=== PATIENT | male | born 1965 | race Caucasian/White ===

== ENCOUNTER 2016-10-19 15:54 | Emergency (ER) | payer OTHER ==
--- NOTE | 2016-10-19 21:13 | RAD ---
LEFT ELBOW FOUR VIEWS 10/19/16 A joint effusion is present. Bony spurring is seen from the coronoid process of the ulna. On two of the views, one sees a linear piece of bone along side the lateral humeral epicondyle. This is either an avulsion injury or ossification in a previously damaged tendon. I cannot tell if this is a recen t or an old one. The latter seems a little more likely. IMPRESSION: 1. Joint effusion. 2. 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 3. Bony density along side the lateral humeral epicondyle. Avulsion versus ligamentous calcific ation from prior injury. Age indeterminate. Code T POS: HOME
== END 2016-10-19 17:10 | disposition home or self-care (01) ==
LOC: BURERS 15:54
DX: S50.02XA Contusion of left elbow, initial encounter (principal); I10 Essential (primary) hypertension; E11.9 Type 2 diabetes mellitus without complications; E78.5 Hyperlipidemia, unspecified; F41.9 Anxiety disorder, unspecified; W01.0XXA Fall on same level from slipping, tripping and stumbling without subsequent striking against object, initial encounter

== ENCOUNTER 2018-04-28 12:40 | Emergency (ER) | payer OTHER ==
[2018-04-28] MEDS ORDERED: Cephalexin 500 MG CAP ONE (13:55)
[2018-04-28] MEDS ORDERED: HYDROcodone/Acetaminophen 5/325 mg Tablet ONE (13:55)
--- NOTE | 2018-04-28 20:25 | RAD ---
RIGHT FOOT THREE VIEWS: 04/28/18 No opaque foreign body was appreciated, including on the plantar aspect of the foot at an area of int erest marked. There has been an old ORIF of a fracture of the distal fibula. There is a flexion defor mity of the great toe at the IP joint with a somewhat abnormal articulation of the two bones. No frac tures are seen. A bony density on the dorsum of the talus anteriorly appears to be due to an old inju ry. IMPRESSION: No opaque foreign body seen. POS: HOME
== END 2018-04-28 14:08 | disposition home or self-care (01) ==
LOC: BURERS 12:40
DX: S91.311A Laceration without foreign body, right foot, initial encounter (principal); E78.5 Hyperlipidemia, unspecified; I12.0 Hypertensive chronic kidney disease with stage 5 chronic kidney disease or end stage renal disease; N18.6 End stage renal disease; F41.9 Anxiety disorder, unspecified; E11.22 Type 2 diabetes mellitus with diabetic chronic kidney disease; F43.10 Post-traumatic stress disorder, unspecified; W25.XXXA Contact with sharp glass, initial encounter